=== PATIENT | male | born 1955 | race Asian ===

== ENCOUNTER 2023-12-15 17:43 | Inpatient (IN) | payer OTHER ==
[~2023-12-15] VITALS: Ht 175.3 cm; Wt 63.5 kg
[2023-12-15] MEDS: NACL 0.9% 1,000 ML IV SCH (00:30)
[2023-12-15 17:43] VITALS: BP 76/48; PULSE 179; RESP 37; TEMP 97; O2SAT 91
[2023-12-15 18:09] LABS: BASOPHILS # (AUTO) 0.1 K/uL (0.00-0.22); EOSINOPHILS % (AUTO) 0.1 % (0.0-4.0); LYMPHOCYTES # (AUTO) 0.9 K/uL (2.0-11.5); LYMPHOCYTES % (AUTO) 5.7 % (20.5-51.1); MEAN CORPUSCULAR HGB CONC 31 g/dL (33-37); RED BLOOD CELL COUNT(AUTO) 4.53 MIL/uL (4.20-6.10)
[2023-12-15] MEDS: NACL 0.9% 2,000 ML IV ONE (18:16)
[2023-12-15 18:21] LABS: BASOPHILS % (AUTO) 0.4 % (0.0-2.0); HEMATOCRIT 44.2 % (36-52); HEMOGLOBIN 13.5 g/dL (12.0-18.0); MEAN CORPUSCULAR HEMOGLOBIN 30 pg (27-31); MEAN CORPUSCULAR VOLUME 97.7 fL (80-94); MONOCYTES # (AUTO) 0.8 K/uL (0.8-1.0); MONOCYTES % (AUTO) 5.6 % (1.7-9.3); NEUTROPHILS # (AUTO) 13.4 K/uL (1.8-7.7); NEUTROPHILS % (AUTO) 88.2 % (42.2-75.2); PLATELET COUNT (AUTO) 396 K/uL (140-450); RED CELL DISTRIBUTION WIDTH 17.3 % (11.6-13.7); WHITE BLOOD COUNT (AUTO) 15.2 K/uL (4.8-10.8)
[2023-12-15 18:25] LABS: INR 1.08 (0.8-1.2); PARTIAL THROMBOPLASTIN TIME 22.3 secs (22-35.6); PROTHROMBIN TIME 11.3 secs (10.8-13.4)
[2023-12-15 18:30] LABS: ANION GAP 33.7 (8-16); CALCIUM 10.4 mg/dL (8.5-10.1); CARBON DIOXIDE 16.7 mmol/L (21-32)
[2023-12-15 18:30] LABS: BLOOD GAS PH 7.272 (7.350-7.450)
[2023-12-15 18:31] LABS: BLOOD GAS HCO3 13.6 mmol/L (21.0-28.0); BLOOD GAS O2 SAT% 99.1 % (94.0-98.0); BLOOD GAS PCO2 30.2 mmHg (35.0-48.0); BLOOD GAS PO2 226.9 mmHg (83.0-108.0)
[2023-12-15 18:33] LABS: ALANINE AMINOTRANSFERASE 34 U/L (12-78); ALBUMIN 2.8 g/dL (3.4-5.0); ALKALINE PHOSPHATASE 129 U/L (50-136); ASPARTATE AMINOTRANSFERASE 44 U/L (15-37); BILIRUBIN,DIRECT 0.7 mg/dL (0.0-0.3); CREATINE KINASE, TOTAL 43 U/L (39-308); TOTAL BILIRUBIN 1.6 mg/dL (0.0-1.0); TOTAL PROTEIN, SERUM 9.3 g/dL (6.4-8.2)
[2023-12-15 18:37] LABS: POTASSIUM 7.4 mmol/L (3.5-5.1)
[2023-12-15 18:38] LABS: CREATININE 9.2 mg/dL (0.6-1.3)
[2023-12-15 18:58] LABS: LACTIC ACID 6.9 mmol/L (0.4-2.0)
[2023-12-15] MEDS: CALCIUM GLUC 1 GM/50 mL NS BAG 50 ML IV ONE (19:00)
[2023-12-15] MEDS: INSULIN REGULAR, HUMAN 100 UNIT/ML VIAL IV ONE (19:00)
[2023-12-15] MEDS ORDERED: SODIUM BICARBONATE 8.4% 50 MEQ in DEXTROSE 5% 1,000 ML IV SCH (19:00)
[2023-12-15 19:04] LABS: MAGNESIUM 3.7 mg/dL (1.8-2.4); PHOSPHORUS 6.7 mg/dL (2.5-4.9)
[2023-12-15 19:06] LABS: BILIRUBIN,URINE 1+ (NEGATIVE); BLOOD, URINE 3+ (NEGATIVE); COLOR,URINE YELLOW (YELLOW); LEUKOCYTE ESTERASE ,URINE TRACE (NEGATIVE); NITRITE, URINE NEGATIVE (NEGATIVE); PROTEIN,URINE 2+ (NEGATIVE); UGLUCOSE NEGATIVE (NEGATIVE); UROBILINOGEN,URINE 0.2 EU/dL (0.2 - 1)
[2023-12-15 19:08] LABS: APPEARANCE,URINE HAZY (CLEAR)
[2023-12-15 19:10] LABS: BACTERIA,URINE 1+ /HPF (None Seen); ICTOTEST POSITIVE (NEGATIVE); MUCUS,URINE None Seen /LPF (None Seen); RBC,URINE 11-20 (MOD) /HPF (0-5); SQUAMOUS EPITHELIAL CELL,UR 0-3 (FEW) /LPF (0-3 (FEW)); WBC,URINE 0-5 /HPF (0-5)
[2023-12-15] MEDS: VANCOMYCIN 1,000 MG in DEXTROSE 5% 250 ML IV ONE (19:10)
[2023-12-15] MEDS: DEXTROSE 50% 50 ML SYR IVP ONE (20:00)
[2023-12-15] MEDS ORDERED: ATOR20TA PO (20:14)
[2023-12-15] MEDS ORDERED: BENA1TAB PO (20:16)
[2023-12-15] MEDS ORDERED: METF-713 PO (20:18)
[2023-12-15] MEDS ORDERED: ASPI-1822 PO (20:19)
[2023-12-15] MEDS ORDERED: FAMO-92 PO (20:19)
[2023-12-15] MEDS: NACL 0.9% 1,000 ML IV ONE (20:30)
[2023-12-15 20:35] LABS: FLU A ANTIGEN NEGATIVE (NEGATIVE); FLU B ANTIGEN NEGATIVE (NEGATIVE)
[2023-12-15] MEDS ORDERED: ACETAMINOPHEN 325 MG TAB PO PRN (20:50)
[2023-12-15] MEDS ORDERED: ONDANSETRON 4 MG/2 ML VIAL IM/IVP PRN (20:50)
[2023-12-15] MEDS ORDERED: ZOLPIDEM 5 MG TAB PO PRN (20:50)
[2023-12-15] MEDS ORDERED: POTASSIUM CHLORIDE 10 MEQ TABER PO PRN (20:50)
[2023-12-15] MEDS ORDERED: HYDROcodone/APAP 7.5/325 MG 1 TAB PO PRN (20:50)
[2023-12-15] MEDS ORDERED: DOCUSATE SODIUM 100 MG GELCAP PO PRN (20:50)
[2023-12-15] MEDS ORDERED: guaiFENesin DM 200/20 MG-10 ML 10 ML UDC PO PRN (20:50)
[2023-12-15] MEDS ORDERED: INSULIN LISPRO SLIDING SCALE 100 UNITS/ML VIAL SUBQ PRN (20:55)
[2023-12-15] MEDS ORDERED: DEXTROSE 50% 50 ML SYR IVP PRN (20:55)
[2023-12-15] MEDS ORDERED: VANCOMYCIN 1,000 MG VIAL ONE (20:57)
[2023-12-15] MEDS ORDERED: CALCIUM GLUC 1 GM/50 mL NS BAG 50 ML IV ONE (20:57)
[2023-12-15] MEDS: BLOOD GLUCOSE MONITORING 1 DEV DEV FS SCH (21:00)
[2023-12-15] MEDS ORDERED: PIPERACILLIN/TAZOBACTAM 3.375 GM in DEXTROSE 5% 50 ML IV SCH (21:00)
[2023-12-15] MEDS: PIPERACILLIN/TAZOBACTAM 2.25 GM in DEXTROSE 5% 50 ML IV ONE (21:00)
[2023-12-15] MEDS ORDERED: DEXTROSE 50% 50 ML SYR IVP ONE (21:00)
[2023-12-15] MEDS ORDERED: PIPERACILLIN/TAZOBACTAM 2.25 GM VIAL IV ONE (21:01)
[2023-12-15] MEDS ORDERED: SODIUM BICARBONATE 8.4% PFS 50 MEQ/50 ML SYR IVP ONE (21:10)
[2023-12-15 23:05] VITALS: RESP 37; O2SAT 91
[2023-12-16] VITALS (34 sets, daily range): BP systolic 84–139; BP diastolic 49–94; PULSE 86–183; RESP 19–40; TEMP 96.9–98.2; O2SAT 72–100
[2023-12-16] MEDS: AMIODARONE 150 MG in DEXTROSE 5% 100 ML IV SCH (00:36)
[2023-12-16] MEDS: DEXTROSE 5% 1,000 ML IV SCH (00:37)
[2023-12-16 00:51] LABS: BASOPHILS # (AUTO) 0.2 K/uL (0.00-0.22); BASOPHILS % (AUTO) 2.3 % (0.0-2.0); EOSINOPHILS % (AUTO) 0.4 % (0.0-4.0); HEMATOCRIT 32.5 % (36-52); HEMOGLOBIN 10.2 g/dL (12.0-18.0); LYMPHOCYTES # (AUTO) 0.4 K/uL (2.0-11.5); LYMPHOCYTES % (AUTO) 4.5 % (20.5-51.1); MEAN CORPUSCULAR HEMOGLOBIN 31 pg (27-31); MEAN CORPUSCULAR HGB CONC 31 g/dL (33-37); MEAN CORPUSCULAR VOLUME 98.9 fL (80-94); MONOCYTES # (AUTO) 0.1 K/uL (0.8-1.0); MONOCYTES % (AUTO) 1.4 % (1.7-9.3); NEUTROPHILS # (AUTO) 8.9 K/uL (1.8-7.7); NEUTROPHILS % (AUTO) 91.4 % (42.2-75.2); PLATELET COUNT (AUTO) 235 K/uL (140-450); RED BLOOD CELL COUNT(AUTO) 3.29 MIL/uL (4.20-6.10); RED CELL DISTRIBUTION WIDTH 17.5 % (11.6-13.7); WHITE BLOOD COUNT (AUTO) 9.8 K/uL (4.8-10.8)
[2023-12-16 00:56] LABS: ANION GAP 24.1 (8-16); CALCIUM 8.8 mg/dL (8.5-10.1); CARBON DIOXIDE 17.1 mmol/L (21-32); POTASSIUM 5.2 mmol/L (3.5-5.1)
[2023-12-16] MEDS: AMIODARONE 150 MG/3 ML VIAL IV ONE ×2 (00:58→03:32)
[2023-12-16] MEDS: AMIODARONE 450 MG/9 ML VIAL IV ONE (00:58)
[2023-12-16] MEDS: AMIODARONE 450 MG in DEXTROSE 5% 250 ML IV SCH (01:02)
[2023-12-16] MEDS: NACL 0.45% 1,000 ML IV SCH (01:35)
[2023-12-16] MEDS: AMIODARONE 150 MG in DEXTROSE 5% 100 ML IV ONE (03:32)
[2023-12-16 03:48] LABS: BASOPHILS # (AUTO) 0.1 K/uL (0.00-0.22); BASOPHILS % (AUTO) 0.8 % (0.0-2.0); EOSINOPHILS # (AUTO) 0.1 K/uL (0-0.4); EOSINOPHILS % (AUTO) 1.3 % (0.0-4.0); HEMATOCRIT 40.6 % (36-52); HEMOGLOBIN 12.3 g/dL (12.0-18.0); LYMPHOCYTES % (AUTO) 9.2 % (20.5-51.1); MEAN CORPUSCULAR HEMOGLOBIN 30 pg (27-31); MEAN CORPUSCULAR HGB CONC 30 g/dL (33-37); MEAN CORPUSCULAR VOLUME 99.2 fL (80-94); MONOCYTES # (AUTO) 0.3 K/uL (0.8-1.0); MONOCYTES % (AUTO) 3.1 % (1.7-9.3); NEUTROPHILS # (AUTO) 9.5 K/uL (1.8-7.7); NEUTROPHILS % (AUTO) 85.6 % (42.2-75.2); PLATELET COUNT (AUTO) 271 K/uL (140-450); RED CELL DISTRIBUTION WIDTH 17.8 % (11.6-13.7); WHITE BLOOD COUNT (AUTO) 11.1 K/uL (4.8-10.8)
[2023-12-16] MEDS: NACL 0.9% 1,000 ML IV SCH (03:49)
[2023-12-16 04:12] LABS: ALBUMIN 2.4 g/dL (3.4-5.0); ANION GAP 24.3 (8-16); CALCIUM 9.5 mg/dL (8.5-10.1); CARBON DIOXIDE 17.7 mmol/L (21-32); TOTAL BILIRUBIN 1.4 mg/dL (0.0-1.0)
[2023-12-16 04:16] LABS: CREATININE 7.7 mg/dL (0.6-1.3)
[2023-12-16] MEDS: PIPERACILLIN/TAZOBACTAM 2.25 GM VIAL IV ONE (04:26)
[2023-12-16] MEDS: PIPER/TAZO 2.25GM/D5W PREMIX 50 ML IV SCH (04:27)
[2023-12-16] MEDS: ALBUTEROL SULFATE/IPRATROPIU 3 ML SOL IH PRN (08:38)
[2023-12-16] MEDS ORDERED: VANCOMYCIN PER PHARMACY MC PRN (09:00)
[2023-12-16] MEDS ORDERED: PANTOPRAZOLE 40 MG TABEC PO SCH (09:00)
[2023-12-16 09:12] LABS: BLOOD GAS PCO2 28.6 mmHg (35.0-48.0); BLOOD GAS PH 7.356 (7.350-7.450); BLOOD GAS PO2 89.9 mmHg (83.0-108.0)
[2023-12-16 09:13] LABS: BLOOD GAS BASE EXCESS -8.5 mmol/L (-2.0-3.0); BLOOD GAS HCO3 15.6 mmol/L (21.0-28.0); BLOOD GAS O2 SAT% 96.4 % (94.0-98.0)
[2023-12-16] MEDS ORDERED: PPN PER PHARMACY MC PRN (11:05)
[2023-12-16 12:29] LABS: CHOL/HDL RATIO 4.5 (1-4.5); PHOSPHORUS 6.5 mg/dL (2.5-4.9)
[2023-12-16] MEDS ORDERED: NACL 0.9% 500 ML IV SCH (12:50)
[2023-12-16] MEDS: PANTOPRAZOLE 40 MG INJ VIAL IVP SCH (13:27)
[2023-12-16] MEDS: PIPERACILLIN/TAZOBACTAM 2.25 GM in DEXTROSE 5% 50 ML IV SCH (13:29)
[2023-12-16] MEDS: ADENOSINE 6 MG/2 ML VIAL IVP ONE (13:30)
[2023-12-16] MEDS: ADENOSINE 6 MG/2 ML VIAL IVP SCH ×2 (13:33)
[2023-12-16] MEDS: PHENYLEPHRINE 10 MG in NACL 0.9% 250 ML IV PRN (14:12)
[2023-12-16 14:37] LABS: ANION GAP 21.4 (8-16); CALCIUM 7.9 mg/dL (8.5-10.1); CARBON DIOXIDE 14.4 mmol/L (21-32); POTASSIUM 4.8 mmol/L (3.5-5.1)
[2023-12-16 14:39] LABS: CREATININE 6.6 mg/dL (0.6-1.3)
[2023-12-16] MEDS: BLOOD GLUCOSE MONITORING 1 DEV DEV MC SCH (18:17)
[2023-12-16] MEDS: VANCOMYCIN 1,000 MG in DEXTROSE 5% 250 ML IV SCH (18:20)
[2023-12-16] MEDS: ALBUTEROL SULFATE/IPRATROPIU 3 ML SOL IH SCH (18:53)
[2023-12-16] MEDS: MULTIVITAMIN IV SCH (20:09)
[2023-12-16] MEDS: AMINO ACIDS 8.5% IV SCH (20:09)
[2023-12-16] MEDS: DEXTROSE IV SCH (20:09)
[2023-12-16] MEDS: [UNRECOGNIZED DRUG - OTHER] IV SCH (20:09)
[2023-12-16] MEDS ORDERED: AMIODARONE 200 MG TAB PO SCH (21:00)
[2023-12-16 22:25] LABS: ANION GAP 17.7 (8-16); CALCIUM 7.6 mg/dL (8.5-10.1); CARBON DIOXIDE 18.5 mmol/L (21-32); POTASSIUM 4.2 mmol/L (3.5-5.1)
[2023-12-16 22:53] LABS: CREATININE 6.3 mg/dL (0.6-1.3)
[2023-12-17] VITALS (28 sets, daily range): BP systolic 103–143; BP diastolic 58–96; PULSE 130–155; RESP 19–29; TEMP 97.4–98.4; O2SAT 93–100
[2023-12-17 05:36] LABS: BASOPHILS % (AUTO) 0.6 % (0.0-2.0); EOSINOPHILS # (AUTO) 0.2 K/uL (0-0.4); EOSINOPHILS % (AUTO) 2.8 % (0.0-4.0); HEMATOCRIT 28.1 % (36-52); HEMOGLOBIN 8.9 g/dL (12.0-18.0); LYMPHOCYTES # (AUTO) 0.7 K/uL (2.0-11.5); LYMPHOCYTES % (AUTO) 9.6 % (20.5-51.1); MEAN CORPUSCULAR HEMOGLOBIN 31 pg (27-31); MEAN CORPUSCULAR HGB CONC 32 g/dL (33-37); MEAN CORPUSCULAR VOLUME 97.2 fL (80-94); MONOCYTES # (AUTO) 0.3 K/uL (0.8-1.0); MONOCYTES % (AUTO) 3.7 % (1.7-9.3); NEUTROPHILS # (AUTO) 6.1 K/uL (1.8-7.7); NEUTROPHILS % (AUTO) 83.3 % (42.2-75.2); PLATELET COUNT (AUTO) 157 K/uL (140-450); RED CELL DISTRIBUTION WIDTH 16.7 % (11.6-13.7); WHITE BLOOD COUNT (AUTO) 7.4 K/uL (4.8-10.8)
[2023-12-17] MEDS ORDERED: MILD SOAP AND WATER TP SCH (05:40)
[2023-12-17 05:55] LABS: ALBUMIN 1.6 g/dL (3.4-5.0); ANION GAP 17.8 (8-16); CALCIUM 7.8 mg/dL (8.5-10.1); CARBON DIOXIDE 17.4 mmol/L (21-32); POTASSIUM 4.2 mmol/L (3.5-5.1); TOTAL BILIRUBIN 0.7 mg/dL (0.0-1.0); TOTAL PROTEIN, SERUM 5.7 g/dL (6.4-8.2)
[2023-12-17 07:55] LABS: PHOSPHORUS 3.7 mg/dL (2.5-4.9)
[2023-12-17] MEDS: PANTOPRAZOLE 40 MG INJ VIAL IVP SCH (08:18)
[2023-12-17 13:17] LABS: ANION GAP 16.9 (8-16); CALCIUM 8.1 mg/dL (8.5-10.1); POTASSIUM 3.9 mmol/L (3.5-5.1)
[2023-12-17] MEDS ORDERED: LEVALBUTEROL 1.25 MG/0.5 ML NEBU INH PRN (13:20)
[2023-12-17 13:50] LABS: CREATININE 5.7 mg/dL (0.6-1.3)
[2023-12-17] MEDS: DIGOXIN 0.25 MG/ML AMP IV SCH ×2 (14:20→19:58)
[2023-12-17] MEDS ORDERED: FOAM DRESSING TP PRN (15:00)
[2023-12-17] MEDS ORDERED: Z-GUARD PASTE TP PRN (15:00)
[2023-12-17] MEDS: LEVALBUTEROL 1.25 MG/0.5 ML NEBU INH SCH (18:53)
[2023-12-17] MEDS ORDERED: DEXTROSE IV SCH (20:00)
[2023-12-17] MEDS ORDERED: MULTIVITAMIN IV SCH (20:00)
[2023-12-17] MEDS ORDERED: AMINO ACIDS IV SCH (20:00)
[2023-12-17] MEDS ORDERED: [UNRECOGNIZED DRUG - OTHER] IV SCH (20:00)
[2023-12-17 20:11] LABS: CALCIUM 8.5 mg/dL (8.5-10.1)
[2023-12-17 20:14] LABS: CREATININE 5.5 mg/dL (0.6-1.3)
[2023-12-17] MEDS: [UNRECOGNIZED DRUG - OTHER] IV SCH (21:59)
[2023-12-17] MEDS: AMINO ACIDS IV SCH (21:59)
[2023-12-17] MEDS: MULTIVITAMIN IV SCH (21:59)
[2023-12-17] MEDS: DEXTROSE IV SCH (21:59)
[2023-12-17] MEDS ORDERED: TPN PER PHARMACY MC PRN (22:00)
[2023-12-18] VITALS (26 sets, daily range): BP systolic 93–148; BP diastolic 58–89; PULSE 89–137; RESP 15–30; TEMP 97.8–98.2; O2SAT 96–100
[2023-12-18] MEDS: Z-GUARD PASTE TP SCH (01:33)
[2023-12-18] MEDS: DIGOXIN 0.25 MG/ML AMP IV SCH ×2 (02:02→14:48)
[2023-12-18 05:39] LABS: BASOPHILS % (AUTO) 0.3 % (0.0-2.0); EOSINOPHILS # (AUTO) 0.2 K/uL (0-0.4); HEMATOCRIT 30.1 % (36-52); HEMOGLOBIN 9.8 g/dL (12.0-18.0); LYMPHOCYTES # (AUTO) 0.5 K/uL (2.0-11.5); LYMPHOCYTES % (AUTO) 7.7 % (20.5-51.1); MEAN CORPUSCULAR HEMOGLOBIN 31 pg (27-31); MEAN CORPUSCULAR HGB CONC 32 g/dL (33-37); MEAN CORPUSCULAR VOLUME 95.6 fL (80-94); MONOCYTES # (AUTO) 0.4 K/uL (0.8-1.0); MONOCYTES % (AUTO) 5.6 % (1.7-9.3); NEUTROPHILS # (AUTO) 5.9 K/uL (1.8-7.7); NEUTROPHILS % (AUTO) 83.4 % (42.2-75.2); PLATELET COUNT (AUTO) 127 K/uL (140-450); RED BLOOD CELL COUNT(AUTO) 3.15 MIL/uL (4.20-6.10); RED CELL DISTRIBUTION WIDTH 16.3 % (11.6-13.7); WHITE BLOOD COUNT (AUTO) 7.1 K/uL (4.8-10.8)
[2023-12-18 06:07] LABS: MAGNESIUM 1.9 mg/dL (1.8-2.4); PHOSPHORUS 3.1 mg/dL (2.5-4.9)
[2023-12-18 06:11] LABS: ALBUMIN 1.6 g/dL (3.4-5.0); ANION GAP 19.1 (8-16); CALCIUM 8.3 mg/dL (8.5-10.1); CARBON DIOXIDE 15.9 mmol/L (21-32); TOTAL BILIRUBIN 0.7 mg/dL (0.0-1.0); TOTAL PROTEIN, SERUM 5.8 g/dL (6.4-8.2)
[2023-12-18 06:14] LABS: CREATININE 5.4 mg/dL (0.6-1.3)
[2023-12-18] MEDS: VANCOMYCIN HCL 750 MG in DEXTROSE 5% 250 ML IV SCH (09:58)
[2023-12-18] MEDS: FOAM DRESSING TP SCH (12:11)
[2023-12-18 12:27] LABS: CREATININE 5.2 mg/dL (0.6-1.3)
[2023-12-18] MEDS: MULTIVITAMIN IV SCH (20:01)
[2023-12-18] MEDS: AMINO ACIDS IV SCH (20:01)
[2023-12-18] MEDS: DEXTROSE IV SCH (20:01)
[2023-12-18] MEDS: [UNRECOGNIZED DRUG - OTHER] IV SCH (20:01)
[2023-12-18 20:34] LABS: ANION GAP 23.5 (8-16); CALCIUM 8.3 mg/dL (8.5-10.1); CARBON DIOXIDE 15.5 mmol/L (21-32)
[2023-12-19] VITALS (28 sets, daily range): BP systolic 113–153; BP diastolic 60–91; PULSE 89–112; RESP 18–31; TEMP 97.5–98.6; O2SAT 94–100
[2023-12-19 05:42] LABS: BASOPHILS % (AUTO) 0.2 % (0.0-2.0); EOSINOPHILS # (AUTO) 0.2 K/uL (0-0.4); EOSINOPHILS % (AUTO) 2.7 % (0.0-4.0); HEMATOCRIT 25.6 % (36-52); HEMOGLOBIN 8.2 g/dL (12.0-18.0); LYMPHOCYTES # (AUTO) 0.7 K/uL (2.0-11.5); MEAN CORPUSCULAR HEMOGLOBIN 30 pg (27-31); MEAN CORPUSCULAR HGB CONC 32 g/dL (33-37); MEAN CORPUSCULAR VOLUME 94.7 fL (80-94); MONOCYTES # (AUTO) 0.6 K/uL (0.8-1.0); MONOCYTES % (AUTO) 6.4 % (1.7-9.3); NEUTROPHILS # (AUTO) 7.5 K/uL (1.8-7.7); NEUTROPHILS % (AUTO) 82.7 % (42.2-75.2); PLATELET COUNT (AUTO) 129 K/uL (140-450); RED BLOOD CELL COUNT(AUTO) 2.71 MIL/uL (4.20-6.10); RED CELL DISTRIBUTION WIDTH 15.8 % (11.6-13.7); WHITE BLOOD COUNT (AUTO) 9.1 K/uL (4.8-10.8)
[2023-12-19 06:00] LABS: ALBUMIN 1.5 g/dL (3.4-5.0); ANION GAP 18.8 (8-16); CALCIUM 8.4 mg/dL (8.5-10.1); CARBON DIOXIDE 18.3 mmol/L (21-32); POTASSIUM 4.1 mmol/L (3.5-5.1); TOTAL BILIRUBIN 0.7 mg/dL (0.0-1.0); TOTAL PROTEIN, SERUM 5.9 g/dL (6.4-8.2)
[2023-12-19 06:08] LABS: CREATININE 4.8 mg/dL (0.6-1.3)
[2023-12-19 06:36] LABS: MAGNESIUM 1.9 mg/dL (1.8-2.4); PHOSPHORUS 2.9 mg/dL (2.5-4.9)
[2023-12-19] MEDS: DIGOXIN 0.25 MG/ML AMP IV SCH (09:56)
[2023-12-19] MEDS: DEXTROSE IV SCH (20:14)
[2023-12-19] MEDS: MULTIVITAMIN IV SCH (20:14)
[2023-12-19] MEDS: AMINO ACIDS IV SCH (20:14)
[2023-12-19] MEDS: [UNRECOGNIZED DRUG - OTHER] IV SCH (20:14)
[2023-12-19] MEDS: Z-GUARD PASTE TP PRN (20:20)
[2023-12-19] MEDS ORDERED: MORPHINE SULFATE 2 MG/ML SYR IVP PRN (23:20)
[2023-12-19] MEDS: HYDROmorphone 1 MG/ML AMP IVP PRN (23:32)
[2023-12-20] VITALS (28 sets, daily range): BP systolic 115–149; BP diastolic 56–81; PULSE 69–94; RESP 18–30; TEMP 97.6–98; O2SAT 95–100
[2023-12-20 05:56] LABS: ALBUMIN 1.6 g/dL (3.4-5.0); ANION GAP 16.3 (8-16); CALCIUM 8.1 mg/dL (8.5-10.1); CARBON DIOXIDE 20.4 mmol/L (21-32); POTASSIUM 3.7 mmol/L (3.5-5.1); TOTAL BILIRUBIN 0.8 mg/dL (0.0-1.0); TOTAL PROTEIN, SERUM 6.3 g/dL (6.4-8.2)
[2023-12-20 06:16] LABS: CREATININE 4.2 mg/dL (0.6-1.3)
[2023-12-20 06:21] LABS: BASOPHILS % (AUTO) 0.4 % (0.0-2.0); EOSINOPHILS # (AUTO) 0.2 K/uL (0-0.4); EOSINOPHILS % (AUTO) 2.2 % (0.0-4.0); HEMATOCRIT 30.1 % (36-52); HEMOGLOBIN 9.7 g/dL (12.0-18.0); LYMPHOCYTES # (AUTO) 0.8 K/uL (2.0-11.5); LYMPHOCYTES % (AUTO) 7.6 % (20.5-51.1); MEAN CORPUSCULAR HEMOGLOBIN 31 pg (27-31); MEAN CORPUSCULAR HGB CONC 32 g/dL (33-37); MEAN CORPUSCULAR VOLUME 95.1 fL (80-94); MONOCYTES # (AUTO) 0.7 K/uL (0.8-1.0); MONOCYTES % (AUTO) 7.2 % (1.7-9.3); NEUTROPHILS # (AUTO) 8.4 K/uL (1.8-7.7); NEUTROPHILS % (AUTO) 82.6 % (42.2-75.2); PLATELET COUNT (AUTO) 117 K/uL (140-450); RED BLOOD CELL COUNT(AUTO) 3.17 MIL/uL (4.20-6.10); RED CELL DISTRIBUTION WIDTH 15.8 % (11.6-13.7); WHITE BLOOD COUNT (AUTO) 10.2 K/uL (4.8-10.8)
[2023-12-20 06:32] LABS: MAGNESIUM 1.8 mg/dL (1.8-2.4); PHOSPHORUS 3.4 mg/dL (2.5-4.9)
[2023-12-21] VITALS (28 sets, daily range): BP systolic 122–153; BP diastolic 57–78; PULSE 71–96; RESP 15–33; TEMP 97.1–97.9; O2SAT 88–100
[2023-12-21] MEDS: AMIODARONE 450 MG/9 ML VIAL IV ONE (00:31)
[2023-12-21 05:52] LABS: BASOPHILS % (AUTO) 0.5 % (0.0-2.0); EOSINOPHILS # (AUTO) 0.4 K/uL (0-0.4); EOSINOPHILS % (AUTO) 4.3 % (0.0-4.0); HEMATOCRIT 28.9 % (36-52); HEMOGLOBIN 9.4 g/dL (12.0-18.0); LYMPHOCYTES # (AUTO) 0.8 K/uL (2.0-11.5); LYMPHOCYTES % (AUTO) 8.7 % (20.5-51.1); MEAN CORPUSCULAR HEMOGLOBIN 31 pg (27-31); MEAN CORPUSCULAR HGB CONC 32 g/dL (33-37); MEAN CORPUSCULAR VOLUME 94.4 fL (80-94); MONOCYTES # (AUTO) 0.7 K/uL (0.8-1.0); MONOCYTES % (AUTO) 7.5 % (1.7-9.3); NEUTROPHILS # (AUTO) 7.1 K/uL (1.8-7.7); PLATELET COUNT (AUTO) 123 K/uL (140-450); RED BLOOD CELL COUNT(AUTO) 3.06 MIL/uL (4.20-6.10); RED CELL DISTRIBUTION WIDTH 15.6 % (11.6-13.7)
[2023-12-21 05:59] LABS: PHOSPHORUS 4.2 mg/dL (2.5-4.9)
[2023-12-21 08:12] LABS: ALBUMIN 1.5 g/dL (3.4-5.0); ANION GAP 15.9 (8-16); CALCIUM 8.2 mg/dL (8.5-10.1); CREATININE 3.9 mg/dL (0.6-1.3); POTASSIUM 3.9 mmol/L (3.5-5.1); TOTAL BILIRUBIN 0.6 mg/dL (0.0-1.0); TOTAL PROTEIN, SERUM 6.2 g/dL (6.4-8.2)
[2023-12-21] MEDS ORDERED: VANCOMYCIN PER PHARMACY MC PRN (11:05)
[2023-12-21] MEDS: PIPERACILLIN/TAZOBACTAM 2.25 GM in DEXTROSE 5% 50 ML IV SCH (14:09)
[2023-12-22] VITALS (27 sets, daily range): BP systolic 110–154; BP diastolic 40–94; PULSE 72–87; RESP 2–37; TEMP 97–97.9; O2SAT 76–100
[2023-12-22 05:57] LABS: BASOPHILS # (AUTO) 0.1 K/uL (0.00-0.22); BASOPHILS % (AUTO) 1.7 % (0.0-2.0); EOSINOPHILS # (AUTO) 0.3 K/uL (0-0.4); EOSINOPHILS % (AUTO) 4.1 % (0.0-4.0); HEMATOCRIT 27.7 % (36-52); HEMOGLOBIN 8.8 g/dL (12.0-18.0); LYMPHOCYTES # (AUTO) 0.6 K/uL (2.0-11.5); LYMPHOCYTES % (AUTO) 7.4 % (20.5-51.1); MEAN CORPUSCULAR HEMOGLOBIN 31 pg (27-31); MEAN CORPUSCULAR HGB CONC 32 g/dL (33-37); MEAN CORPUSCULAR VOLUME 98.1 fL (80-94); MONOCYTES # (AUTO) 0.6 K/uL (0.8-1.0); MONOCYTES % (AUTO) 7.5 % (1.7-9.3); NEUTROPHILS # (AUTO) 6.6 K/uL (1.8-7.7); NEUTROPHILS % (AUTO) 79.3 % (42.2-75.2); PLATELET COUNT (AUTO) 128 K/uL (140-450); RED BLOOD CELL COUNT(AUTO) 2.83 MIL/uL (4.20-6.10); RED CELL DISTRIBUTION WIDTH 15.9 % (11.6-13.7); WHITE BLOOD COUNT (AUTO) 8.4 K/uL (4.8-10.8)
[2023-12-22 06:00] LABS: ALBUMIN 1.3 g/dL (3.4-5.0); ANION GAP 16.4 (8-16); CALCIUM 7.6 mg/dL (8.5-10.1); CARBON DIOXIDE 21.9 mmol/L (21-32); CREATININE 3.6 mg/dL (0.6-1.3); TOTAL BILIRUBIN 0.6 mg/dL (0.0-1.0); TOTAL PROTEIN, SERUM 5.9 g/dL (6.4-8.2)
[2023-12-22 06:05] LABS: MAGNESIUM 2.4 mg/dL (1.8-2.4); PHOSPHORUS 6.2 mg/dL (2.5-4.9)
[2023-12-22 06:20] LABS: POTASSIUM 6.3 mmol/L (3.5-5.1)
[2023-12-22] MEDS: VANCOMYCIN HCL 750 MG in DEXTROSE 5% 250 ML IV SCH (08:58)
[2023-12-22] MEDS: AMIODARONE 150 MG in DEXTROSE 5% 100 ML IV SCH (09:02)
[2023-12-22 09:31] LABS: ANION GAP 15.3 (8-16); CARBON DIOXIDE 21.8 mmol/L (21-32); CREATININE 3.6 mg/dL (0.6-1.3); POTASSIUM 4.1 mmol/L (3.5-5.1)
[2023-12-22 10:32] LABS: PHOSPHORUS 3.8 mg/dL (2.5-4.9)
[2023-12-22] MEDS ORDERED: PRO40I IVP (18:47)
[2023-12-22] MEDS ORDERED: ACET-9531 PO (18:47)
[2023-12-22] MEDS ORDERED: ONDA2SOL45 IM/IVP (18:47)
[2023-12-22] MEDS ORDERED: LEVA1.255 INH ×2 (18:47)
[2023-12-22] MEDS ORDERED: ZGUARD TP ×2 (18:47)
[2023-12-22] MEDS ORDERED: HUMSLIDE SUBQ (18:47)
[2023-12-22] MEDS ORDERED: ZOLP5TAB1 PO (18:47)
[2023-12-22] MEDS ORDERED: Tpn Per Pharmacy MC (18:47)
[2023-12-22] MEDS ORDERED: PIPE3.3745 IV (18:47)
[2023-12-22] MEDS ORDERED: Foam Dressing TP ×2 (18:47)
[2023-12-22] MEDS ORDERED: DIL1I IVP (18:47)
[2023-12-22] MEDS ORDERED: MILD SOAP AND WATER TP (18:47)
[2023-12-22] MEDS ORDERED: GLUC-805 MC (18:47)
[2023-12-22] MEDS ORDERED: [UNRECOGNIZED DRUG - CODE] IV (18:47)
[2023-12-22] MEDS ORDERED: ACET-1182 PO (18:47)
[2023-12-22] MEDS ORDERED: GUAI5LIQ5 PO (18:47)
[2023-12-23] VITALS: BP 130/52; PULSE 72; RESP 20; TEMP 97.9; O2SAT 97
== END 2023-12-23 01:00 | DRG 871 ==
LOC: MED 17:43 → MTU 20:47 → MIC 23:55
PROVIDERS: ADMIT Student in an Organized Health Care Education/Training Program; ATTEND Student in an Organized Health Care Education/Training Program
PROC: 5A2204Z Restoration of Cardiac Rhythm, Single (ICD-10-PCS; 2023-12-15)
PROC: 5A0935A Assistance with Respiratory Ventilation, Less than 24 Consecutive Hours, High Flow/Velocity Cannula (ICD-10-PCS; 2023-12-15)
PROC: 02HV33Z Insertion of Infusion Device into Superior Vena Cava, Percutaneous Approach (ICD-10-PCS; principal; 2023-12-16)
PROC: 05HY33Z Insertion of Infusion Device into Upper Vein, Percutaneous Approach (ICD-10-PCS; 2023-12-16)
PROC: 5A2204Z Restoration of Cardiac Rhythm, Single (ICD-10-PCS; 2023-12-16)
PROC: 5A09357 Assistance with Respiratory Ventilation, Less than 24 Consecutive Hours, Continuous Positive Airway Pressure (ICD-10-PCS; 2023-12-16)
DX: A41.9 Sepsis, unspecified organism (principal); J18.9 Pneumonia, unspecified organism; J69.0 Pneumonitis due to inhalation of food and vomit; J96.01 Acute respiratory failure with hypoxia; N17.0 Acute kidney failure with tubular necrosis; R65.21 Severe sepsis with septic shock; E87.0 Hyperosmolality and hypernatremia; I48.20 Chronic atrial fibrillation, unspecified; N39.0 Urinary tract infection, site not specified; I69.351 Hemiplegia and hemiparesis following cerebral infarction affecting right dominant side; I24.89 Other forms of acute ischemic heart disease; Z20.822 Contact with and (suspected) exposure to COVID-19; E87.5 Hyperkalemia; I12.9 Hypertensive chronic kidney disease with stage 1 through stage 4 chronic kidney disease, or unspecified chronic kidney disease; I48.91 Unspecified atrial fibrillation; Z66 Do not resuscitate; E78.5 Hyperlipidemia, unspecified; E86.0 Dehydration; N18.9 Chronic kidney disease, unspecified; N28.1 Cyst of kidney, acquired; Z79.82 Long term (current) use of aspirin; Z79.899 Other long term (current) drug therapy; Z79.4 Long term (current) use of insulin; Z79.51 Long term (current) use of inhaled steroids
CPT/HCPCS: 36415; 36600; 51702; 70370; 70450; 71045; 74018; 80048; 80053; 80076; 80162; 80202; 81001; 82550; 82803; 82948; 83605; 83735; 83880; 84100; 84484; 85025; 85610; 85730; 87040; 87081; 87086; 87186; 92526; 92960; 93005; 94640; 96365; 96368; 96375; 97110; 97163-GP; 97530; 99291; 99292; A9153; G0500; J0153; J0282; J0610; J1160; J1170; J1815; J2470; J2543; J3370; J7030; J7060; J7612; Q0092